=== PATIENT | female | born 1970 | race Caucasian/White ===

== ENCOUNTER → 2017-03-11 | Outpatient (CLI) | payer OTHER ==
[~2017-03-11] MED LIST: SUCR1TAB PO
--- NOTE | 2017-03-11 10:03 | DIAGNOSTIC IMAGING REPORT ---
CHEST CT WITHOUT CONTRAST CT DOSE: 196.10 mGy.cm HISTORY: Pneumothorax BULLA OF LUNG, DYSPNEA ON EXERTION, PNEUMOTHORAX ON LEFT TECHNIQUE: Transaxial acquisition with multi axial reformatted images COMPARISON: 08/28/2011 Findings: Considerable improvement in the CT of the chest compared to the prior study. Residual 3.3 cm bleb left base. Large bleb previously described has resolved and/or is considerably diminished in size. Lung parenchyma otherwise is currently clear. Several small vague micronodular densities are present all of which are stable compared to the prior exam. There is no significant mediastinal or hilar adenopathy. IMPRESSION: 1. Considerable improvement compared to the prior study. 2. Residual bleb left base measuring 3.3 cm. 3. Lungs otherwise are clear. Electronically signed by: Sal Villalta M.D. 03/11/2017 10:01 AM Dictated Date/Time: 03/11/2017 9:58 AM
== END | disposition home or self-care (01) ==
LOC: C.CTS 09:14
PROVIDERS: ATTEND Internal Medicine Critical Care Medicine
DX: J43.9 Emphysema, unspecified (principal); J93.9 Pneumothorax, unspecified; R06.09 Other forms of dyspnea